=== PATIENT | male | born 1950 | race Hispanic/Latino ===

== ENCOUNTER 2021-10-19 05:42 | Day surgery (SDC) | payer OTHER ==
[2021-10-17 12:23] LABS: BASOPHILS % (AUTO) 0.7 % (0.0-5.0); EOSINOPHILS % (AUTO) 2.3 % (0.0-8.0); HEMATOCRIT 46.4 % (42-54); LYMPHOCYTES % (AUTO) 31.2 % (21.0-51.0); MEAN CORPUSCULAR HEMOGLOBIN 29.3 pg (27.0-33.0); MEAN CORPUSCULAR VOLUME 88.9 fL (79-99); MONOCYTES % (AUTO) 9.5 % (3.0-13.0); PLATELET COUNT (AUTO) 147 K/uL (130-400); RED BLOOD CELL COUNT(AUTO) 5.22 MIL/uL (4.50-6.20); RED CELL DISTRIBUTION WIDTH 13.5 % (11.0-15.5)
[2021-10-17 12:33] LABS: POTASSIUM 4.3 mmol/L (3.5-5.1)
[2021-10-17 12:34] LABS: APPEARANCE,URINE Clear (CLEAR); BILIRUBIN,URINE Negative (NEGATIVE); COLOR,URINE Yellow (YELLOW); GLUCOSE, URINE (UA) Negative (NEGATIVE); KETONES,URINE Trace mg/dL (NEGATIVE); LEUKOCYTE ESTERASE ,URINE Negative (NEGATIVE); NITRATE,URINE Negative (NEGATIVE); OCCULT BLOOD,URINE Negative (NEGATIVE); PROTEIN,URINE Negative (NEGATIVE)
[2021-10-17 12:45] LABS: INR 0.98 (0.85-1.15); PROTHROMBIN TIME 10.7 SEC (9.6-11.6)
[2021-10-17 12:46] LABS: PARTIAL THROMBOPLASTIN TIME 27.7 SEC (26.3-35.5)
[2021-10-17 12:49] LABS: B-TYPE NATRIURETIC PEPTIDE 23 pg/mL (0-100)
[2021-10-17 12:52] LABS: BACTERIA,URINE Rare /HPF (None Seen); RBC,URINE 0-1 /HPF (0-1); SQUAMOUS EPITHELIAL CELL,UR Rare /HPF (0-2); WBC,URINE 0-1 /HPF (0-1)
[2021-10-18 11:17] VITALS: BP 143/90
[2021-10-19] VITALS (9 sets, daily range): BP systolic 118–183; BP diastolic 88–89
[~2021-10-19] VITALS: Ht 165.1 cm; Wt 75.6 kg
[~2021-10-19 05:42] MED LIST: AEC81 PO; FAMO40TA7 PO; LOVA40TA2 PO; METO25TA6 PO; TAMS0.4C32 PO; VITAMIN D3 PO
[2021-10-19] MEDS ORDERED: 0.9%NACL 1000ML 1,000 ML IV ONE (06:00)
[2021-10-19] MEDS ORDERED: IOHEXOL 350 MG/ML 100ML INFUS..BTL IV ONE (07:07)
[2021-10-19] MEDS ORDERED: IOHEXOL-350 50ML VIAL IV ONE ×2 (07:07→08:26)
[2021-10-19] MEDS ORDERED: NITROGLYCERIN 50MG VIAL ONE (07:07)
[2021-10-19] MEDS ORDERED: HEPARIN 10,000 UNIT/10ML (1,000 UNIT/ML) VIAL ONE (07:07)
[2021-10-19] MEDS ORDERED: LIDOCAINE HCL 1% MDV 50ML VIAL ONE (07:08)
[2021-10-19] MEDS ORDERED: FENTANYL CITRATE PF 50 MCG/1 ML 2ML VIAL ONE (07:08)
[2021-10-19] MEDS ORDERED: MIDAZOLAM HCL 1 MG/ML 2ML VIAL ONE (07:08)
[2021-10-19] MEDS ORDERED: BIVALIRUDIN 250 MG/VIAL IV ONE (07:26)
[2021-10-19] MEDS ORDERED: 0.9%NACL 1000ML 1,000 ML IV SCH (09:00)
== END 2021-10-19 13:10 | disposition home or self-care (01) ==
LOC: DAH 05:42
PROVIDERS: ATTEND Internal Medicine Cardiovascular Disease
DX: I25.10 Atherosclerotic heart disease of native coronary artery without angina pectoris (principal); I25.82 Chronic total occlusion of coronary artery; I25.5 Ischemic cardiomyopathy; I10 Essential (primary) hypertension; I25.2 Old myocardial infarction; E78.5 Hyperlipidemia, unspecified; H54.7 Unspecified visual loss; Z82.49 Family history of ischemic heart disease and other diseases of the circulatory system; Z79.01 Long term (current) use of anticoagulants; Z79.899 Other long term (current) drug therapy; Z95.5 Presence of coronary angioplasty implant and graft; Z98.890 Other specified postprocedural states
CPT/HCPCS: 36415; 71045; 80048; 81001; 83880; 85025; 85610; 85730; 93005; 93459; A4215; A4216; A4221; A4222; A4223 ×3; A4606; A4663; C1760; C1769 ×2; C1874; C1894 ×2; J1644; J2250; J3010; J3490 ×2; J7030; Q9965 ×2; Q9967 ×2; 99156; 99157; J0583